=== PATIENT | female | born 1975 | race Two or more races ===

== ENCOUNTER 2021-12-04 06:06 | Emergency (ER) | payer SELFPAY ==
[~2021-12-04] VITALS: Ht 165.1 cm; Wt 73.0 kg
[2021-12-04] MEDS ORDERED: predniSONE 10 MG TABLET PO ONE (07:00)
[2021-12-04] MEDS ORDERED: IPRATRPIUM/ALBUTEROL 0.5/2.5MG 3 ML NEBU. NEB ONE ×2 (07:00→07:30)
[2021-12-04 08:06] VITALS: BP 123/64
--- NOTE | 2021-12-04 08:10 | PHYS DOC ---
Past Medical History Past Medical History: Asthma Past Surgical History: No Surgical History Smoking Status: Never Smoker Alcohol Use: None General Adult EDM: Chief Complaint: ASTHMA HPI: HPI: Patient is a 46 year old female with a history of asthma who presents to the emergency department today with concerns for an asthma attack. Patient states that last night about 7 PM she began to have some shortness of breath and wheezing. She also had a nonproductive cough. She states she tried to use her albuterol inhaler several times last night without relief and therefore presented to the emergency department this morning. She denies any fevers or chills. She denies any chest pain. She states that this is typical of her previous asthma attacks. She states her last bad asthma attack was about 2 months ago and was similar in nature. Review of Systems: Review of Systems: Constitutional: Denies fever or chills. [] Eyes: Denies change in visual acuity. [] HENT: Denies nasal congestion or sore throat. [] Respiratory: Positive for cough, wheezing and shortness of breath. Cardiovascular: Denies chest pain or edema. [] GI: Denies abdominal pain, nausea, vomiting, bloody stools or diarrhea. [] : Denies dysuria. [] Musculoskeletal: Denies back pain or joint pain. [] Integument: Denies rash. [] Neurologic: Denies headache, focal weakness or sensory changes. [] Endocrine: Denies polyuria or polydipsia. [] Lymphatic: Denies swollen glands. [] Psychiatric: Denies depression or anxiety. [] Heart Score: C/O Chest Pain: No Family History: Family History: Noncontributory Current Medications: Current Medications Medications (Trade) Dose Ordered Sig/Viridiana Start Time Stop Time Status Last Admin Dose Admin Albuterol/ Ipratropium (Duoneb) 3 ml 1X ONCE 12/04/21 07:30 12/04/21 07:31 DC 12/04/21 07:49 3 ML Prednisone (Prednisone) 60 mg 1X ONCE 12/04/21 07:00 12/04/21 07:01 DC 12/04/21 07:00 60 MG Allergies: Allergies: Allergies Coded Allergies Type Severity Reaction Last Updated Verified No Known Drug Allergies 12/04/21 No Physical Exam: PE: Constitutional: Well developed, well nourished, in mild distress, non-toxic appearance. [] HENT: Normocephalic, atraumatic, bilateral external ears normal, oropharynx moist, no oral exudates, nose normal. [] Eyes: PERRLA, EOMI, conjunctiva normal, no discharge. [] Neck: Normal range of motion, no tenderness, supple, no stridor. [] Cardiovascular:Heart rate regular rhythm, no murmur [] Lungs & Thorax: Tachypneic. Wheezing noted in all lung silva. Increased work of breathing. Abdomen: Bowel sounds normal, soft, no tenderness, no masses, no pulsatile masses. [] Skin: Warm, dry, no erythema, no rash. [] Back: No tenderness, no CVA tenderness. [] Extremities: No tenderness, no cyanosis, no clubbing, ROM intact, no edema. [] Neurologic: Alert and oriented X 3, normal motor function, normal sensory function, no focal deficits noted. [] Psychologic: Affect normal, judgement normal, mood normal. [] Current Patient Data: Vital Signs: Vital Signs Date Time Temp Pulse Resp B/P (MAP) Pulse Ox O2 Delivery O2 Flow Rate FiO2 12/04/21 07:49 98 Room Air 12/04/21 06:17 98.5 87 40 145/82 (103) 98.5 EKG: EKG: [] Radiology/Procedures: Radiology/Procedures: [] Course & Med Decision Making: Course & Med Decision Making Patient evaluated at the bedside. She does have increased work of breathing with tachypnea and wheezing noted throughout all lung silva. She states this is typical for her previous asthma attacks therefore we will treat her with continuous neb treatment as well as 60 mg of prednisone. On reassessment patient's lungs have are now clear. Her tachypnea has resolved and her work of breathing has improved. We we will observe her here in the emergency department for an additional hour to make sure she has no recurrence of her symptoms. We will discharge her home with a 5-day course of prednisone. Critical care time: I spent greater than 30 minutes of critical care time in e valuation and management of this patient. This time was exclusive of procedures. [place] Disclaimer: Ashley Disclaimer: This electronic medical record was generated, in whole or in part, using a voice recognition dictation system. Departure Departure Impression: Primary Impression: Acute asthma exacerbation Disposition: 01 HOME / SELF CARE / HOMELESS Condition: IMPROVED Referrals: NO PCP (PCP) Patient Instructions: Asthma Attacks, Prevention, Asthma, Acute Bronchospasm Scripts Prednisone (PREDNISONE) 20 Mg Tablet 3 TAB PO DAILY PRN for COUGH for 5 Days, #15 TAB Prov: SHUBHAM MORRIS MD 12/04/21 SHUBHAM MORRIS MD December 04, 2021 08:10
[2021-12-04] MEDS ORDERED: PRED20TA PO (08:31)
== END 2021-12-04 09:06 | disposition home or self-care (01) ==
LOC: ER 06:06
DX: J45.901 Unspecified asthma with (acute) exacerbation (principal)
CPT/HCPCS: 94640; 99291; J7512; 99284-25; 99285-25